=== PATIENT | female | born 1960 ===

== ENCOUNTER 2018-03-08 21:54 | Emergency (ER) | payer BC ==
[2018-03-08 22:05] VITALS: PULSE 68; RESP 16; TEMP 96; O2SAT 98
[2018-03-08] MEDS: PROPARACAINE HCL 0.5% OPHTHALMIC SOL OP ONE ×2 (22:20→22:50)
[2018-03-08] MEDS ORDERED: SODIUM CHLORIDE 0.9% 250 ML SOL IV ONE (22:30)
== END 2018-03-08 22:54 | disposition home or self-care (01) ==
LOC: ED 21:54
DX: S05.02XA Injury of conjunctiva and corneal abrasion without foreign body, left eye, initial encounter (principal)
CPT/HCPCS: 99283; A9270-GY